=== PATIENT | male | born 1975 | race Caucasian/White ===

== ENCOUNTER 2017-09-03 11:20 | Emergency (ER) | payer BC ==
[~2017-09-03] VITALS: Ht 188 cm; Wt 126.1 kg
[2017-09-03 11:24] VITALS: BP 144/80; PULSE 73; TEMP 37; O2SAT 98; Ht 188 cm; Wt 126.1 kg
[2017-09-03] MEDS ORDERED: XYLOCAINE 1%/SOD BICARB 20 ML VIAL INFIL ONE (11:32)
--- NOTE | 2017-09-03 17:12 | EMERGENCY ROOM VISIT NOTE ---
History First contact with patient: 11:31 Chief Complaint: LACERATION/CUT (SUT/DERMABOND) Stated Complaint: LACERATION ON RIGHT FOOT/PATIENT ON BLOOD THINNERS Nursing Triage Summary: laceration bottom of right foot pt dropped glass and stepped on glass pt reports being on Xerelto History of Present Illness The patient is a 42 year old male who presents to the Emergency Room with complaints of a right foot laceration that happened this morning. The patient accidentally stepped on a broken drinking glass. The patient presents to the emergency department because of persistent bleeding. The patient is currently taking Xarelto for recently diagnosed right lower extremity DVT. The patient does not believe that there is any glass in the wound, and denies any significant pain. Tetanus immunization is up-to-date. Review of Systems 6 system review was performed and was negative except for pertinent positives and negatives as indicated in history of present illness Past Medical/Surgical History Medical Problems: (1) Deep vein thrombosis (DVT) of right lower extremity Surgical Problems: (1) No history of previous surgery Family History Unremarkable Social History Smoking Status: Never Smoker Alcohol Use: occasionally Marital Status: Housing Status: lives with family Occupation Status: employed Physical Exam Vital Signs Date Time Temp Pulse Resp B/P (MAP) Pulse Ox O2 Delivery O2 Flow Rate FiO2 09/03/17 11:24 37.0 73 20 144/80 98 Room Air Physical Exam CONSTITUTIONAL: Healthy and well nourished. Alert and oriented X 3 with positive affect. HEENT: Normocephalic, atraumatic. Pupils equal, round and reactive. NECK: Full active range of motion without discomfort. MUSCULOSKELETAL: Examination of the right plantar foot shows a 3 cm laceration with mild active bleeding. The patient is able to flex and extend his toes. No obvious glass foreign debris is noted within the wound. Capillary refill is less than 2 seconds. INTEGUMENTARY: No rash or other significant dermatologic conditions noted. NEUROLOGIC: Right foot and toes are sensory intact. Medical Decision & Procedures Procedure Laceration repair was performed under local anesthesia after receiving verbal consent from the patient. Using buffered 1% lidocaine without epinephrine, good local anesthesia was administered. The wound was peripherally cleansed with iodine, then copiously pressure irrigated with normal saline. Exploration of the wound does not show any underlying glass. The wound was then approximated using 4-0 nylon simple interrupted sutures with good hemostasis. A bacitracin pressure dressing was applied. ED Course Patient history and physical exam were performed. Nurse's notes were reviewed. Vital signs were reviewed and were normal. Laceration repair was performed under local anesthesia. The patient reports that he does have crutches at home , and was encouraged to use them to avoid any further irritation of the wound. The patient was encouraged to intermittently apply ice to the foot. Tylenol as needed for pain. The patient refused any additional prescription analgesics, was happy with plan of care, and denied any pain at the time of discharge. He was instructed to contact his PCP for suture removal in 12-14 days, seeking reevaluation sooner for any signs of infection. Medical Decision Medication Reconcilliation Current Medication List: was personally reviewed by me Blood Pressure Screening Patient's blood pressure: Normal blood pressure Impression Primary Impression: Laceration of right foot Departure Information Dispostion Home / Self-Care Condition GOOD Forms HOME CARE DOCUMENTATION FORM, IMPORTANT VISIT INFORMATION Patient Instructions My [facility] Additional Instructions Keep pressure dressing in place for the next 24 hours to minimize risk for further bleeding. Keep wound clean and dry. Do not allow any crusting or dried blood to accumulate on sutures. If this occurs, use a 1:1 solution of hydrogen peroxide/ water on a Q-tip to clean the wound. Use an antibiotic ointment for 3-4 days, then let wound dry. Suture removal in 12-14 days. Return sooner for any signs of infection (increasing redness, swelling, drainage). Ice and elevate for swelling and pain. Tylenol 1000 mg every 6 hrs if needed for additional pain relief. Problem Qualifiers Primary Impression: Laceration of right foot Encounter type: initial encounter Qualified Codes: S91.311A - Laceration without foreign body, right foot, initial encounter
== END 2017-09-03 12:08 | disposition home or self-care (01) ==
LOC: C.EDB 11:22 → C.EDD 12:08
DX: S91.311A Laceration without foreign body, right foot, initial encounter (principal); W25.XXXA Contact with sharp glass, initial encounter; I82.401 Acute embolism and thrombosis of unspecified deep veins of right lower extremity; Z79.01 Long term (current) use of anticoagulants